=== PATIENT | female | born 1940 | race Caucasian/White ===

== ENCOUNTER 2020-06-16 13:00 | Outpatient (RCR) | payer MEDICARE, SELFPAY ==
--- NOTE | 2020-06-28 11:38 | MHC.PT.EP ---
[facility] [place] Office [place] Office [place] Office [address] [phone] F: [phone] F: [phone] F: [phone] F: [phone] Physical Therapy Plan of Care Date of Evaluation: 06/16/20 Date of Surgery: Diagnosis: Non displaced R ankle fracture Assessment: Frequency and Duration: The patient will be seen Short Term Goals: SEE LTG BELOW Knot Borer Goals: reduce girth descrepancy to absent - met No AD, symmetrical gait - met able to walk/stand > 20 minutes without increased pain - met normal ankle AROM, strength 4/5 grossly - met (ROM WFL) I with HEP - MET Treatment Plan: Modalities to reduce pain, spasms and effusion. Manual therapy to restore motion and function. Therapeutic exercise to improve strength and flexibility. Neuromuscular re-education for posture and balance. Therapeutic activities to return to functional activities of daily living. Please sign and return to therapist. Thank you for your referral.
== END 2020-06-28 11:41 | disposition home or self-care (01) ==
LOC: HO.PTCHIC 13:00
PROVIDERS: PCP Internal Medicine; Visit Provider Physician Assistant
DX: S82.891D Other fracture of right lower leg, subsequent encounter for closed fracture with routine healing (principal); X58.XXXD Exposure to other specified factors, subsequent encounter
CPT/HCPCS: 97110; 97112; 97140

== ENCOUNTER → 2021-02-23 08:51 | Outpatient (BNVA) | payer MEDICARE, SELFPAY | PROVIDERS: Visit Provider Urology | DX: C67.9 Malignant neoplasm of bladder, unspecified (principal) | CPT/HCPCS: 52000; 99212 ==

== ENCOUNTER 2022-02-23 09:36 | Outpatient (REF) | payer MEDICARE, SELFPAY ==
[2022-02-23 16:44] LABS: Urine Cytology See Pathology rpt
== END 2022-02-23 09:37 | disposition home or self-care (01) ==
LOC: HO.LAB 09:36
PROVIDERS: Visit Provider Urology
DX: C67.9 Malignant neoplasm of bladder, unspecified (principal)
CPT/HCPCS: 52000; 88112; 99212

== ENCOUNTER 2023-02-22 09:58 | Outpatient (REF) | payer MEDICARE, SELFPAY ==
[2023-02-22 18:07] LABS: Urine Cytology See Pathology rpt
== END 2023-02-22 09:59 | disposition home or self-care (01) ==
LOC: HO.LAB 09:58
PROVIDERS: PCP Internal Medicine; Visit Provider Urology
DX: C67.9 Malignant neoplasm of bladder, unspecified (principal)
CPT/HCPCS: 52000; 88112; 99212

== ENCOUNTER 2023-04-01 12:00 | Day surgery (SDC) | payer MEDICARE, SELFPAY ==
[2023-03-27 14:17] VITALS: BMI 23.0
--- NOTE | 2023-03-29 10:20 | HO.ANESPROP2 ---
Documented by User: Ayana Carrasco NP 03/29/23 10:24 HPI - Anesthesia Eval Consult details Narrative: 83yo F for TUR Bladder Tumor w/gemcitabine CAD s/p PCI with RCA in 2003. Last cardiac visit 08/2021. Stable at 09/2022 PCP visit. [facility] Active Problems Active Problems: All Active Problems (Updated 03/27/23 @ 13:55 by Kenzie Yang RN) Bladder cancer (Acute) Past Medical History Medical History (Updated 03/27/23 @ 13:55 by Kenzie Yang RN) Abdominal pain Adenomatous polyposis coli Arthritis CAD (coronary artery disease) Claudication Closed fracture of patella Gallstone GERD (gastroesophageal reflux disease) Glucose intolerance History of bladder cancer HTN (hypertension) Hx of fracture of wrist Hypercholesterolemia Leg cramps Obesity, Class I, BMI 30.0-34.9 (see actual BMI) Osteoporosis Venous stasis Vitamin D deficiency Surgical History Surgical History (Updated 03/27/23 @ 13:56 by Kenzie Yang RN) H/O colonoscopy Social History Social History Patient Tobacco Use Status: Never used Tobacco Use of substances other than those prescribed or required for medical reasons: No Are you DNR?: No Advance Directives: No Advance Directives Information Provided: Yes Meds Allergies Allergy/AdvReac Type Severity Reaction Status Date / Time No Known Allergies Allergy Mild NONE Verified 02/22/23 10:17 Home Medications Medication Instructions Recorded Confirmed Last Taken Type alendronate 70 mg tablet 70 mg PO QWEEK 03/27/23 03/27/23 Unknown History aspirin 81 mg tablet,delayed 81 mg PO DAILY 03/27/23 03/27/23 03/27/23 History release atorvastatin 40 mg tablet 40 mg PO BEDTIME 03/27/23 03/27/23 Unknown History calcium carbonate 600 mg-vitamin 1 tab PO DAILY 03/27/23 03/27/23 Unknown History D3 10 mcg (400 unit) tablet (Calcium 600 + D(3)) carvedilol 25 mg tablet (Coreg) 25 mg PO BID 03/27/23 03/27/23 Unknown History hydrochlorothiazide 25 mg tablet 25 mg PO DAILY 03/27/23 03/27/23 Unknown History hydrocortisone valerate 0.2 % 1 appl topical BID 03/27/23 03/27/23 Unknown History topical cream losartan 100 mg tablet 100 mg PO DAILY 03/27/23 03/27/23 Unknown History multivitamin 1 tab PO DAILY 03/27/23 03/27/23 Unknown History Exam Exam Date and Time: March 29, 2023 1020 Height,Weight and Vital Signs: Height 5 ft 8 in Weight 68.492 kg Assessment and Plan Assessment Anesthesia Assessment: Chart Reviewed Documented by User: Art Rosales MD 04/01/23 13:14 [facility] Past Medical History Medical History (Updated 03/27/23 @ 13:55 by Kenzie Yang RN) Abdominal pain Adenomatous polyposis coli Arthritis CAD (coronary artery disease) Claudication Closed fracture of patella Gallstone GERD (gastroesophageal reflux disease) Glucose intolerance History of bladder cancer HTN (hypertension) Hx of fracture of wrist Hypercholesterolemia Leg cramps Obesity, Class I, BMI 30.0-34.9 (see actual BMI) Osteoporosis Venous stasis Vitamin D deficiency Narrative: No heart problems since stent was placed. Family History Family history of problems with anesthesia: No Surgical History Surgical History (Updated 03/27/23 @ 13:56 by Kenzie Yang RN) H/O colonoscopy History of Problems with Anesthesia: No Social History Social History Patient Tobacco Use Status: Never used Tobacco Use of substances other than those prescribed or required for medical reasons: No Are you DNR?: No Advance Directives: No Advance Directives Information Provided: Yes Meds Allergies Allergy/AdvReac Type Severity Reaction Status Date / Time No Known Allergies Allergy Mild NONE Verified 02/22/23 10:17 Home Medications Medication Instructions Recorded Confirmed Last Taken Type alendronate 70 mg tablet 70 mg PO QWEEK 03/27/23 03/27/23 Unknown History aspirin 81 mg tablet,delayed 81 mg PO DAILY 03/27/23 03/27/23 03/27/23 History release atorvastatin 40 mg tablet 40 mg PO BEDTIME 03/27/23 03/27/23 Unknown History calcium carbonate 600 mg-vitamin 1 tab PO DAILY 03/27/23 03/27/23 Unknown History D3 10 mcg (400 unit) tablet (Calcium 600 + D(3)) carvedilol 25 mg tablet (Coreg) 25 mg PO BID 03/27/23 03/27/23 Unknown History hydrochlorothiazide 25 mg tablet 25 mg PO DAILY 03/27/23 03/27/23 Unknown History hydrocortisone valerate 0.2 % 1 appl topical BID 03/27/23 03/27/23 Unknown History topical cream losartan 100 mg tablet 100 mg PO DAILY 03/27/23 03/27/23 Unknown History multivitamin 1 tab PO DAILY 03/27/23 03/27/23 Unknown History Exam Airway Mallampati Class: II TM Dist: >3cm Neck ROM: Full Loose/Missing/Broken Teeth: No Heart: ok. See above. Lungs: ok Assessment and Plan Assessment Anesthesia Assessment: Anesthesia Plan Discussed Final Anesthetic Review Family History of Problems with Anesthesia: No History of Problems with Anesthesia: No NPO: Yes ASA Class: III Final Preanesthetic Review: No Changes in Pt Med Stat, Meds/Allgs Chart Reviewed, Consent Obtained/Reviewed and Anes Risks/Benef Reviewed Patient Risk: High Procedure Risk: Low Anesthetic Plan Anesthetic Plan: GA and Agree w/ Assess. and Plan Disposition: Standard PACU
[2023-04-01] VITALS (10 sets, daily range): BP systolic 135–179; BP diastolic 47–88; PULSE 57–70; RESP 16–18; TEMP 36.4–36.5; O2SAT 97
[2023-04-01] MEDS: Lactated Ringers 1,000 ML 100 ML IVCONT (13:26)
--- NOTE | 2023-04-01 14:33 | P.HPSUR_ITS ---
Pre-Procedural Eval Section A Date of Service: 04/01/23 The patient is an INPATIENT: No Changes since office visit: No Cold of Flu in the past 2 weeks, No New Medical Problems, No Changes in Medication and No Patient answered all questions The History & Physical has been completed within 30 days and I have reviewed it.: Yes Section B Chief Complaint: Malignant neoplasm of bladder, unspecified Details of Present Illness: recurrent superficial bladder cancer recurrence Present Medications: see Short Stay Collaborative assessment Medical History: No relevant PMH History of Previous Operations: Relevant previous surgery/procedure and date(s) Allergies: Allergies Allergy/AdvReac Type Severity Reaction Status Date / Time No Known Allergies Allergy Mild NONE Verified 02/22/23 10:17 Review of Systems Sugical H&P ROS: Negative: Constitution, Cardiovascular, Respiratory, Neurological, Psychiatric, Hem-Onc, Allergic/Immunologic, Gastrointestinal, Genitourinary, Musculoskeletal, Integumentary, Endocrine and E yes/Ears/Nose/Throat Exam Surgical H&P Exam: Normal: HEENT, Normal: Heart, Normal: Lungs, Normal: Extremities, Normal: Abdomen, Normal: Skin and Normal: Neurological Plan Diagnosis/Plan: Unchanged ( cystoscopy, bladder biopsy, fulguration, gemcitabine) I have reviewed the history and physical and performed a pertinent physical examination on my patient. No changes have occurred unless specified. Time Spent With Patient Time: Total time managing care of this patient today ____ minutes.
--- NOTE | 2023-04-01 15:29 | P.OP_ITS ---
Operative Note Operative Note Date of Service: 04/01/23 Narrative: PreOperative Diagnosis: bladder cancer Post Operative Diagnosis: bladder cancer Procedure: fulguration and Gemcitabine installation Surgeon: Dr David Ayon Anesthesia: general Indications for procedure: recurrent superficial bladder cancer right-sided bladder wall office cystoscopy Procedure: After informed consent was verified the patient was brought to the operating room and placed in a supine position. Anesthesia was administered per protocol. The patient was placed in a modified dorsal lithotomy position and prepped and draped in a sterile fashion. Safety pause time-out was performed. Antibiotics were confirmed. 24 Scottish cystoscope placed using narrow band imaging mucosal changes could be seen around prior biopsy and resection site. Fulguration performed around this area. Two other areas that was small had mucosal changes and these with follow-up rated At the completion of the procedure the bladder was irrigated. The cystoscope was removed. A [address] Linares catheter was inserted into the bladder. 10 cc was placed in the balloon. 2 g of gemcitabine in 100 cc of normal saline was instilled into the bladder. The flow from the catheter was left clamped. The inflow to the catheter was attached to a 3 L normal saline bag. The patient tolerated the procedure well. They were extubated in the operating room and transferred in stable condition to the recovery area. Gemcitabine will remain in the bladder for 1 hour. At the completion of 1 hour the clamp will be removed. The gemcitabine will be allowed to egress to the urine collection bag. The 3 L bag of normal saline will be run at maximum rate through the bladder in order to dilute any residual gemcitabine. The Linares catheter will then be removed. Pathology: none Drains: []
== END 2023-04-01 17:27 | disposition home or self-care (01) ==
PROVIDERS: PCP Internal Medicine; Visit Provider Urology
PROC: 0TBB8ZZ Excision of Bladder, Via Natural or Artificial Opening Endoscopic (ICD-10-PCS; CPT 52234; principal; 2023-04-01 13:50)
DX: C67.4 Malignant neoplasm of posterior wall of bladder (principal); N32.89 Other specified disorders of bladder; I25.10 Atherosclerotic heart disease of native coronary artery without angina pectoris; Z95.5 Presence of coronary angioplasty implant and graft; I10 Essential (primary) hypertension; E78.5 Hyperlipidemia, unspecified; E74.39 Other disorders of intestinal carbohydrate absorption; Z79.82 Long term (current) use of aspirin; Z79.899 Other long term (current) drug therapy
CPT/HCPCS: 52234; 51720; J1100; J1956; J2405; J3010; J9201

== ENCOUNTER → 2023-04-01 12:00 | Outpatient (BNV) | payer MEDICARE, SELFPAY | PROVIDERS: PCP Internal Medicine; Visit Provider Urology | DX: C67.9 Malignant neoplasm of bladder, unspecified (principal) | CPT/HCPCS: 51720; 52234 ==

== ENCOUNTER 2023-04-17 14:22 | Outpatient (AMB) | payer MEDICARE, SELFPAY ==
--- NOTE | 2023-04-17 14:26 | MHC.OFFVIS ---
Intake Intake Visit Reasons: 2 week (TURBT/Gemcitabine) Intake Note: Patient is present for Follow Up TURBT Urology Med: None Antibiotic Allergy: None Blood Thinner: Aspirin Pharmacy: [facility] Allergies No Known Allergies Allergy (Mild, Verified 04/17/23 14:27) NONE HPI HPI Comments History of Present Illness Details Arlyn is a pleasant female. She is a patient of Dr. Epstein. She is seen for the following urologic conditions - bladder cancer Stable 4 month follow-up cystoscopy Minimal issues following procedure Superficial bladder cancer - recurrent Stable Cystoscopy - 02/20 NAD, 02/21 NAD TURBT - 04/24 fulgeration with gemcitabine Continues with white cells and urine Continue surveillance PFSH Medical History Abdominal pain Adenomatous polyposis coli Arthritis CAD (coronary artery disease) Claudication Closed fracture of patella Gallstone GERD (gastroesophageal reflux disease) Glucose intolerance History of bladder cancer HTN (hypertension) Hx of fracture of wrist Hypercholesterolemia Leg cramps Obesity, Class I, BMI 30.0-34.9 (see actual BMI) Osteoporosis Venous stasis Vitamin D deficiency Surgical History H/O colonoscopy Social History Patient Tobacco Use Status: Never used Tobacco Review of Systems Const Denies chills and Denies fever(s) Card Reports no additional complaints and Denies syncope Resp Denies cough GI Denies abdominal pain and Denies heartburn Reports as per HPI and Denies change in libido Neuro Denies syncope Psych Denies change in libido Endo Denies change in libido Physical Exam Const General: cooperative, healthy appearing, comfortable and no acute distress Orientation/consciousness: patient oriented x3 HEENT Face and sinus: Yes normal facial exam Mouth: moist mucous membranes Neck Neck: Yes normal visual inspection, Yes full ROM and Yes trachea midline Chest Chest palpation & inspection: normal inspection of the chest Resp Effort & Inspection: normal respiratory effort, able to speak in complete sentences and no respiratory distress GI Inspection: Yes normal to inspection Back/Spine/Pelvis Cervical Spine: normal cervical lordosis Thoracic/Lumbar Spine: thoracic and lumbar spine normal to inspection Skin General skin exam: no rashes or lesions noted Neuro General: patient oriented x3, gait normal, tone normal and moves all extremities Extrem General: Yes normal to inspection and Yes capillary refill normal Assessment & Plan Assessment & Plan (1) Bladder cancer: Code(s): C67.9 - Malignant neoplasm of bladder, unspecified Plan Four month follow-up Patient Instructions: Imaging studies, laboratory and physical exam results were discussed and reviewed in detail. No major barriers to patient understanding were identified. An opportunity to ask questions regarding the treatment plan was provided. All questions were answered. The patient expressed understanding and agreement with the above treatment plan. The patient is aware they should contact our office by phone for worsening of their current condition or the appearance of new urologic symptoms. Compliance is encouraged with any medications and followup testing that is ordered. It is a privilege to participate in the urologic care of your patient. If you have any questions or concerns regarding treatment for the above conditions, or other urologic issues, please do not hesitate to contact me. The office telephone contact is [phone]. This note is constructed using voice recognition software. While every effort has been made to ensure accuracy optical element coater errors may have been included. Yours sincerely, Dr David Ayon MD, NADJA [facility] - Urology Providers of Expert, Compassionate Care for the Genitourinary System Coding Level of Care Code Est Pt Level 3 (34644) Diagnoses Bladder cancer C67.9
== END 2023-04-17 14:50 | disposition home or self-care (01) ==
PROVIDERS: PCP Internal Medicine; Visit Provider Urology
DX: C67.8 Malignant neoplasm of overlapping sites of bladder (principal)
CPT/HCPCS: 99213

== ENCOUNTER → 2023-04-17 14:22 | Outpatient (BNVA) | payer MEDICARE, SELFPAY | PROVIDERS: PCP Internal Medicine; Visit Provider Urology | DX: C67.9 Malignant neoplasm of bladder, unspecified (principal) | CPT/HCPCS: 99212 ==

== ENCOUNTER 2023-08-13 09:54 | Outpatient (REF) | payer MEDICARE, SELFPAY ==
[2023-08-13 17:07] LABS: Urine Cytology See Pathology rpt
== END 2023-08-13 09:55 | disposition home or self-care (01) ==
LOC: HO.LAB 09:54
PROVIDERS: PCP Internal Medicine; Visit Provider Urology
DX: C67.9 Malignant neoplasm of bladder, unspecified (principal)
CPT/HCPCS: 52000; 81003; 88112

== ENCOUNTER 2023-08-13 09:54 | Outpatient (AMB) | payer MEDICARE, SELFPAY ==
--- NOTE | 2023-08-13 10:13 | A.OFFVIS_ITS ---
Intake Intake Visit Reasons: 4m/cysto(Bladder Ca) Intake Note: Patient is Present for Cystoscopy Urology Med: Antibiotic Allergy: Blood Thinner: Pharmacy: [facility] Cystoscope lot: [id number] exp: 08/26/2025 Allergies No Known Allergies Allergy (Mild, Verified 04/17/23 14:27) NONE HPI HPI Comments History of Present Illness Details Arlyn is a pleasant female. She is a patient of Dr. Epstein. She is seen for the following urologic conditions - bladder cancer Follow-up cystoscopy Stable 4 month follow-up cystoscopy Superficial bladder cancer - recurrent - last leasion LG 04/24 Stable Cystoscopy - 02/20 NAD, 02/21 NAD, 08/24 NAD TURBT - 04/24 fulgeration with gemcitabine Continues with white cells and urine Continue surveillance PFSH Medical History Abdominal pain Adenomatous polyposis coli Arthritis CAD (coronary artery disease) Claudication Closed fracture of patella Gallstone GERD (gastroesophageal reflux disease) Glucose intolerance History of bladder cancer HTN (hypertension) Hx of fracture of wrist Hypercholesterolemia Leg cramps Obesity, Class I, BMI 30.0-34.9 (see actual BMI) Osteoporosis Venous stasis Vitamin D deficiency Surgical History H/O colonoscopy Social History Patient Tobacco Use Status: Never used Tobacco Review of Systems Const Denies chills and Denies fever(s) Card Reports no additional complaints and Denies syncope Resp Denies cough GI Denies abdominal pain and Denies heartburn Reports as per HPI and Denies change in libido Neuro Denies syncope Psych Denies change in libido Endo Denies change in libido Physical Exam Const General: cooperative, healthy appearing, comfortable and no acute distress Orientation/consciousness: patient oriented x3 HEENT Face and sinus: Yes normal facial exam Mouth: moist mucous membranes Neck Neck: Yes normal visual inspection, Yes full ROM and Yes trachea midline Chest Chest palpation & inspection: normal inspection of the chest Resp Effort & Inspection: normal respiratory effort, able to speak in complete sentences and no respiratory distress GI Inspection: Yes normal to inspection Back/Spine/Pelvis Cervical Spine: normal cervical lordosis Thoracic/Lumbar Spine: thoracic and lumbar spine normal to inspection Skin General skin exam: no rashes or lesions noted Neuro General: patient oriented x3, gait normal, tone normal and moves all extremities Extrem General: Yes normal to inspection and Yes capillary refill normal Office Procedures Cystoscopy Consent Discussed risk and benefit or proposed procedure with the patient. Information consent for procedure given to the patient. Discussed technical aspects, risks, benefits and alternatives in full. Addressed all of the patient's questions and concerns regarding the procedure. The patient demonstrated knowledge and understanding. They wish to proceed with this procedure. Preparation The patient was prepped in the usual manner. A collar padder blindstitch was present and in the room. Genitalia was prepped with betadine solution in a sterile manner. Lidocaine Jelly 2% was placed into the urethra and 16Fr flexible Olympus cystoscope was inserted into the meatus after adequate lubrication. Procedure Meatus caruncle Urethra normal Bladder examination with retroflexion of cystoscope Bladder Orifices normal shape and position Trigone normal Bladder Capacity medium Trabeculations grade 1 Cellule Formation - Diverticulum Formation - Mucosal Erythema - Bladder Tumor -- [id number] DISPOSABLE SCOPE URO-G FLEXIBLE SCOPE Procedure code (CPT) selection complete Office Meds lidocaine HCl 2 % mucosal jelly in applicator Performing Provider: David Ayon MD Performing Location: [facility] Administered by: Luisa Heredia RN on 08/13/23 10:28 Dose Route Admin Location Dispensed Lot Number Expiration Date NDC Loss Control Technician 10 mL intra-urethral 10 mL nitrofurantoin monohydrate/macrocrystals 100 mg capsule Performing Provider: David Ayon MD Performing Location: [facility] Administered by: Luisa Heredia RN on 08/13/23 10:28 Dose Route Admin Location Dispensed Lot Number Expiration Date NDC Loss Control Technician 100 mg PO 1 cap naproxen 500 mg tablet Performing Provider: David Ayon MD Performing Location: [facility] Administered by: Luisa eHredia RN on 08/13/23 10:28 Dose Route Admin Location Dispensed Lot Number Expiration Date NDC Loss Control Technician 500 mg PO 1 tab Results AMB Urinalysis, Automated UA Leukoctes 70 Yue/uL Last Edit by GISELA Freire on 08/13/23 10:28 UA Nitrite Negative Last Edit by Kaitlynn Callejas, RMA on 08/13/23 10:28 UA Urobilinogen 0.2 mg/dL Last Edit by Kaitlynn Callejas, RMA on 08/13/23 10:2 8 UA Protein 0 mg/dL Last Edit by Kaitlynn Callejas, RMA on 08/13/23 10:28 UA pH 6.5 Last Edit by Kaitlynn Callejas, RMA on 08/13/23 10:28 UA Blood 0 Chon/uL Last Edit by Kaitlynn Callejas, RMA on 08/13/23 10:28 UA Specific [place] 1.010 Last Edit by Kaitlynn Callejas, RMA on 08/13/23 10: 28 UA Ketone Negative Last Edit by Kaitlynn Callejas, RMA on 08/13/23 10:28 UA Bilirubin 0 mg/dL Last Edit by Kaitlynn Callejas, RMA on 08/13/23 10:28 UA Glucose 0 mg/dL Last Edit by Kaitlynn Callejas, A on 08/13/23 10:28 Results Reviewed Results Reviewed: Laboratory Last Values Urine pH (Auto) 6.5 08/13/23 10:26 Specific [place] (Auto) 1.010 08/13/23 10:26 Urine Protein (Auto) 0 mg/dL 08/13/23 10:26 Glucose (UA)(Auto) 0 mg/dL 08/13/23 10:26 Urine Ketones (Auto) Negative 08/13/23 10:26 Urine Blood (Auto) 0 Chon/uL 08/13/23 10:26 Urine Nitrite (Auto) Negative 08/13/23 10:26 Urine Bilirubin (Auto) 0 mg/dL 08/13/23 10:26 Urine Urobilinogen (Auto) 0.2 mg/dL 08/13/23 10:26 Leukocyte Esterase (Auto) 70 Yue/uL 08/13/23 10:26 Assessment & Plan Assessment & Plan (1) Bladder cancer: Code(s): C67.9 - Malignant neoplasm of bladder, unspecified Plan Four month follow-up check cysto Orders: Orders AMB Urinalysis Automated Today Z13.9 - Encounter for screening, unspecified AMB Cystoscopy Today C67.9 - Malignant neoplasm of bladder, unspecified Urine Cytology Today C67.9 - Malignant neoplasm of bladder, unspecified Patient Instructions: Imaging studies, laboratory and physical exam results were discussed and reviewed in detail. No major barriers to patient understanding were identified. An opportunity to ask questions regarding the treatment plan was provided. All questions were answered. The patient expressed understanding and agreement with the above treatment plan. The patient is aware they should contact our office by phone for worsening of their current condition or the appearance of new urologic symptoms. Compliance is encouraged with any medications and followup testing that is ordered. It is a privilege to participate in the urologic care of your patient. If you have any questions or concerns regarding treatment for the above conditions, or other urologic issues, please do not hesitate to contact me. The office telephone contact is [phone]. This note is constructed using voice recognition software. While every effort has been made to ensure accuracy email production consultant errors may have been included. Yours sincerely, Dr David Ayon MD, NAJDA [facility] - Urology Providers of Expert, Compassionate Care for the Genitourinary System Coding Level of Care Code Procedure Only Diagnoses Bladder cancer C67.9 CPT Codes Cystoscopy - CPT: 99001-[id number] ([id number])
== END 2023-08-13 10:49 | disposition home or self-care (01) ==
PROVIDERS: PCP Internal Medicine; Visit Provider Urology
DX: C67.9 Malignant neoplasm of bladder, unspecified (principal); Z13.9 Encounter for screening, unspecified
CPT/HCPCS: 52000

== ENCOUNTER 2023-12-12 08:59 | Outpatient (REF) | payer MEDICARE, SELFPAY ==
[2023-12-12 17:06] LABS: Urine Cytology See Pathology rpt
== END 2023-12-12 09:00 | disposition home or self-care (01) ==
LOC: HO.LAB 08:59
PROVIDERS: PCP Internal Medicine; Visit Provider Urology
DX: C67.9 Malignant neoplasm of bladder, unspecified (principal); M19.90 Unspecified osteoarthritis, unspecified site; R31.29 Other microscopic hematuria; R33.9 Retention of urine, unspecified
CPT/HCPCS: 52000; 81003; 88112; 99212

== ENCOUNTER 2023-12-12 08:59 | Outpatient (AMB) | payer MEDICARE, SELFPAY ==
--- NOTE | 2023-12-12 09:00 | A.OFFVIS_ITS ---
Intake Intake Visit Reasons: cysto (confirmed) Intake Note: Patient presents today for a Cystoscopy Meds: None Allergies to Antibiotic: No Known Allergies Blood Thinner: None Urinalysis test clear for Cysto? Yes Disposable Uro-G Cystoscope Cannula: Lot: [id number] Exp: 07/11/2026 Chief Of Staff Doctor Required: No Accompanied by: Self / Same As Patient Allergies No Known Allergies Allergy (Mild, Verified 12/12/23 09:10) NONE HPI HPI Comments History of Present Illness Details Arlyn is a pleasant female. She is a patient of Dr. Epstein. She is seen for the following urologic conditions - bladder cancer Follow-up cystoscopy No evidence of disease Six-month follow-up cystoscopy Does report sole knees and hips was sitting in lithotomy. Secondary to arthritis. He takes Tylenol which she says does not work. Does not really take Naprosyn. Discussed trial of Celebrex Prescription provided If successful can follow with PCP Superficial bladder cancer - recurrent - last leasion LG 04/24 Stable Cystoscopy - 02/20 NAD, 02/21 NAD, 08/24 NAD TURBT - 04/24 fulgeration with gemcitabine Continues with white cells and urine Continue surveillance [facility] Medical History (Updated 12/12/23 @ 09:25 by David Ayon MD) Obesity, Class I, BMI 30.0-34.9 (see actual BMI) Vitamin D deficiency Venous stasis Osteoporosis Leg cramps Hypercholesterolemia HTN (hypertension) Hx of fracture of wrist Glucose intolerance Gallstone GERD (gastroesophageal reflux disease) Closed fracture of patella Claudication Arthritis CAD (coronary artery disease) Adenomatous polyposis coli Abdominal pain History of bladder cancer Surgical History H/O colonoscopy Social History Patient Tobacco Use Status: Never used Tobacco Review of Systems Const Denies chills and Denies fever(s) Card Reports no additional complaints and Denies syncope Resp Denies cough GI Denies abdominal pain and Denies heartburn Reports as per HPI and Denies change in libido Neuro Denies syncope Psych Denies change in libido Endo Denies change in libido Physical Exam Const General: cooperative, healthy appearing, comfortable and no acute distress Orientation/consciousness: patient oriented x3 HEENT Face and sinus: Yes normal facial exam Mouth: moist mucous membranes Neck Neck: Yes normal visual inspection, Yes full ROM and Yes trachea midline Chest Chest palpation & inspection: normal inspection of the chest Resp Effort & Inspection: normal respiratory effort, able to speak in complete sentences and no respiratory distress GI Inspection: Yes normal to inspection Back/Spine/Pelvis Cervical Spine: normal cervical lordosis Thoracic/Lumbar Spine: thoracic and lumbar spine normal to inspection Skin General skin exam: no rashes or lesions noted Neuro General: patient oriented x3, gait normal, tone normal and moves all extremities Extrem General: Yes normal to inspection and Yes capillary refill normal Office Procedures Cystoscopy Consent Discussed risk and benefit or proposed procedure with the patient. Information consent for procedure given to the patient. Discussed technical aspects, risks, benefits and alternatives in full. Addressed all of the patient's questions and concerns regarding the procedure. The patient demonstrated knowledge and understanding. They wish to proceed with this procedure. Preparation The patient was prepped in the usual manner. A senior insight manager was present and in the room. Genitalia was prepped with betadine solution in a sterile manner. Lidocaine Jelly 2% was placed into the urethra and 16Fr flexible Olympus cystoscope was inserted into the meatus after adequate lubrication. Procedure Meatus D estrogenized meatus Urethra normal Bladder examination with retroflexion of cystoscope Bladder Orifices normal shape and position Trigone normal Bladder Capacity normal Trabeculations Cellule Formation Diverticulum Formation Mucosal Erythema Bladder Tumor scarring on left side bladder prior location [id number] DISPOSABLE SCOPE URO-G FLEXIBLE SCOPE Procedure code (CPT) selection complete Office Meds lidocaine HCl 2 % mucosal jelly in applicator Performing Provider: David Ayon MD Performing [facility] [place] [facility] Administered by: Kyle Vilchis LPN on 12/12/23 09:21 Dose Route Admin Location Dispensed Lot Number Expiration Date [facility] Certified Nurse Operating Room 10 mL intra-urethral 10 mL nitrofurantoin monohydrate/macrocrystals 100 mg capsule Performing Provider: David Ayon MD Performing Location: [facility] [place] [facility] Administered by: Kyle Vilchis LPN on 12/12/23 09:21 Dose Route Admin Location Dispensed Lot Number Expiration Date NDC Certified Nurse Operating Room 100 mg PO 1 cap naproxen 500 mg tablet Performing Provider: David Ayon MD Performing Location: [facility] [place] [facility] Administered by: Kyle Vilchis LPN on 12/12/23 09:21 Dose Route Admin Location Dispensed Lot Number Expiration Date NDC Certified Nurse Operating Room 500 mg PO 1 tab Results AMB Urinalysis, Automated UA Leukoctes 500 Yue/uL Last Edit by Griselda Wetzel CMA on 12/12/23 09:18 UA Nitrite Negative Last Edit by Griselda Wetzel CMA on 12/12/23 09: 18 UA Urobilinogen 0.2 mg/dL Last Edit by Griselda Wetzel CMA on 4 09:18 UA Protein 0 mg/dL Last Edit by Griselda Wetzel CMA on 12/12/23 09:18 UA pH 6.0 Last Edit by Griselda Wetzel CMA on 12/12/23 09:18 UA Blood 10 Chon/uL Last Edit by Griselda Wetzel CMA on 12/12/23 09:18 UA Specific [place] 1.015 Last Edit by Griselda Wetzel CMA on 09:18 UA Ketone Negative Last Edit by Griselda Wetzel CMA on 12/12/23 09:1 8 UA Bilirubin 0 mg/dL Last Edit by Griselda Wetzel CMA on 12/12/23 09: 18 UA Glucose 0 mg/dL Last Edit by Griselda Wetzel CMA on 12/12/23 09:18 Results Reviewed Results Reviewed: Laboratory Last Values Urine pH (Auto) 6.0 12/12/23 09:17 Specific [place] (Auto) 1.015 12/12/23 09:17 Urine Protein (Auto) 0 mg/dL 12/12/23 09:17 Glucose (UA)(Auto) 0 mg/dL 12/12/23 09:17 Urine Ketones (Auto) Negative 12/12/23 09:17 Urine Blood (Auto) 10 Chon/uL 12/12/23 09:17 Urine Nitrite (Auto) Negative 12/12/23 09:17 Urine Bilirubin (Auto) 0 mg/dL 12/12/23 09:17 Urine Urobilinogen (Auto) 0.2 mg/dL 12/12/23 09:17 Leukocyte Esterase (Auto) 500 Yue/uL 12/12/23 09:17 Assessment & Plan Assessment & Plan (1) Arthritis: Code(s): M19.90 - Unspecified osteoarthritis, unspecified site (2) Bladder cancer: Code(s): C67.9 - Malignant neoplasm of bladder, unspecified Plan Six-month follow-up cystoscopy Orders: Orders AMB Cystoscopy Today C67.9 - Malignant neoplasm of bladder, unspecified AMB Urinalysis Automated Today R33.9 - Retention of urine, unspecified Urine Cytology Today R31.29 - Other microscopic hematuria Medications: New celecoxib 100 mg PO BID 30 days 60 caps 0RF M19.90 - Unspecified osteoarthritis, unspecified site Patient Instructions: Imaging studies, laboratory and physical exam results were discussed and reviewed in detail. No major barriers to patient understanding were identified. An opportunity to ask questions regarding the treatment plan was provided. All questions were answered. The patient expressed understanding and agreement with the above treatment plan. The patient is aware they should contact our office by phone for worsening of their current condition or the appearance of new urologic symptoms. Compliance is encouraged with any medications and followup testing that is ordered. It is a privilege to participate in the urologic care of your patient. If you have any questions or concerns regarding treatment for the above conditions, or other urologic issues, please do not hesitate to contact me. The office tel ephone contact is [phone]. This note is constructed using voice recognition software. While every effort has been made to ensure accuracy core drill operator helper errors may have been included. Yours sincerely, Dr David Ayon MD, NADJA [facility] - Urology Providers of Expert, Compassionate Care for the Genitourinary System Coding Level of Care Code Est Pt Level 4 (38866) Diagnoses Arthritis M19.90 Bladder cancer C67.9 CPT Codes Cystoscopy - CPT: 92410-[id number] ([id number])
== END 2023-12-12 09:42 | disposition home or self-care (01) ==
PROVIDERS: PCP Internal Medicine; Visit Provider Urology
DX: M19.90 Unspecified osteoarthritis, unspecified site (principal); C67.9 Malignant neoplasm of bladder, unspecified; R33.9 Retention of urine, unspecified
CPT/HCPCS: 52000; 99214

== ENCOUNTER 2024-02-14 07:31 | Outpatient (REF) | payer MEDICARE, SELFPAY ==
[2024-02-14 10:21] LABS: Appearance Urine Clear; Color Urine Yellow; Glucose Urine UA Negative (Negative); Leukocyte Esterase Urine Moderate (2+) (Negative); Nitrite Urine Negative (Negative); PH 7.5 (5.0-9.0); UMIC TRIGGER UA YES; Urine Blood Small (1+) (Negative); Urine Ketones Negative (Negative); Urine Protein Negative (Neg-Trace)
[2024-02-14 10:28] LABS: Bacteria Urine 4+ (None Seen); Hyaline Casts Urine 0-2 /LPF (0-2); Squamous Epithelial Cell Urine 0-2 /HPF (0-2); WBC Urine 21-50 /HPF (0-5)
== END 2024-02-14 07:32 | disposition home or self-care (01) ==
LOC: HO.HMGCLDS 07:31
PROVIDERS: PCP Internal Medicine; Visit Provider Urology
DX: C67.9 Malignant neoplasm of bladder, unspecified (principal); R82.90 Unspecified abnormal findings in urine
CPT/HCPCS: 81001; 87086; 87088; 87186

== ENCOUNTER 2024-09-15 13:41 | Outpatient (AMB) | payer MEDICARE, SELFPAY ==
--- NOTE | 2024-09-15 13:44 | A.OFFVIS_ITS ---
Intake Visit Reasons: Cystoscopy(Bladder Ca) Intake Note: Patient is present for Cystoscopy Urology Medication:BACTRIM,BACLOFEN,GABAPENTIN,CELECOXIB Antibiotic Allergy:NONE Blood Thinner:ASPIRIN Lot:[id number] Exp:07/06/27 Auricular Acupuncturist Required: No Allergies No Known Allergies Allergy (Mild, Verified 09/15/24 13:47) NONE HPI Comments Details: Arlyn is a pleasant female. She is a patient of Dr. Epstein. 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 - last leasion LG 04/24 Stable Cystoscopy - 02/20 NAD, 02/21 NAD, 08/24 NAD TURBT - 04/24 fulgeration with gemcitabine Continues with white cells and urine Continue surveillance PF[facility] Medical History (Updated 09/15/24 @ 14:46 by David Ayon MD) Obesity, Class I, BMI 30.0-34.9 (see actual BMI) Vitamin D deficiency Venous stasis Osteoporosis Leg cramps Hypercholesterolemia HTN (hypertension) Hx of fracture of wrist Glucose intolerance Gallstone GERD (gastroesophageal reflux disease) Closed fracture of patella Claudication Arthritis CAD (coronary artery disease) Adenomatous polyposis coli Abdominal pain History of bladder cancer Surgical History H/O colonoscopy Social History Patient Tobacco Use Status: Never used Tobacco Review of Systems Const Denies chills and Denies fever(s) Card Reports no additional complaints and Denies syncope Resp Denies cough GI Denies abdominal pain and Denies heartburn Reports as per HPI and Denies change in libido Neuro Denies syncope Psych Denies change in libido Endo Denies change in libido Physical Exam Const General: cooperative, healthy appearing, comfortable and no acute distress Orientation/consciousness: patient oriented x3 HEENT Face and sinus: Yes normal facial exam Mouth: moist mucous membranes Neck Neck: Yes normal visual inspection, Yes full ROM and Yes trachea midline Chest Chest palpation & inspection: normal inspection of the chest Resp Effort & Inspection: normal respiratory effort, able to speak in complete sentences and no respiratory distress GI Inspection: Yes normal to inspection Back/Spine/Pelvis Cervical Spine: normal cervical lordosis Thoracic/Lumbar Spine: thoracic and lumbar spine normal to inspection Skin General skin exam: no rashes or lesions noted Neuro General: patient oriented x3, gait normal, tone normal and moves all extremities Extrem General: Yes normal to inspection and Yes capillary refill normal Office Procedures Cystoscopy Consent Discussed risk and benefit or proposed procedure with the patient. Information consent for procedure given to the patient. Discussed technical aspects, risks, benefits and alternatives in full. Addressed all of the patient's questions and concerns regarding the procedure. The patient demonstrated knowledge and understanding. They wish to proceed with this procedure. Preparation The patient was prepped in the usual manner. A licensed journeyman electrician was present and in the room. Genitalia was prepped with betadine solution in a sterile manner. Lidocaine Jelly 2% was placed into the urethra and 16Fr flexible Olympus cystoscope was inserted into the meatus after adequate lubrication. Procedure Meatus normal Urethra normal Bladder examination with retroflexion of cystoscope Bladder Orifices normal shape and position Trigone metaplasia Bladder Capacity normal Trabeculations grade 1 Cellule Formation - Diverticulum Formation - Mucosal Erythema cystitis cystica Bladder Tumor - [id number] DISPOSABLE SCOPE URO-G FLEXIBLE SCOPE Procedure code (CPT) selection complete Office Meds lidocaine HCl 2 % mucosal jelly in applicator Performing Provider: David Ayon MD Performing Location: [facility] [place] [facility] Administered by: David Ayon MD on 09/16/24 16:49 Dose Route Admin Location Dispensed Lot Number Expiration Date [facility] Special Needs Teacher 10 mL intra-urethral 10 mL Results AMB Urinalysis, Automated UA Leukoctes 500 Yue/uL Last Edit by KAMALA Jung on 09/15/24 14:05 UA Nitrite Negative Last Edit by KAMALA Jung on 09/15/24 14:05 UA Urobilinogen 0.2 mg/dL Last Edit by KAMALA Jung on 09/15/24 14:0 5 UA Protein 15 mg/dL Last Edit by KAMALA Jung on 09/15/24 14:05 UA pH 6.0 Last Edit by KAMALA Jung on 09/15/24 14:05 UA Blood 25 Chon/uL Last Edit by KAMALA Jung on 09/15/24 14:05 UA Specific [place] 1.010 Last Edit by KAMALA Jung on 09/15/24 14: 05 UA Ketone Negative Last Edit by KAMALA Jung on 09/15/24 14:05 UA Bilirubin 0 mg/dL Last Edit by KAMALA Jung on 09/15/24 14:05 UA Glucose 0 mg/dL Last Edit by KAMALA Jung on 09/15/24 14:05 Results Reviewed Results Reviewed: Laboratory Last Values Urine pH (Auto) 6.0 09/15/24 14:04 Specific [place] (Auto) 1.010 09/15/24 14:04 Urine Protein (Auto) 15 mg/dL 09/15/24 14:04 Glucose (UA)(Auto) 0 mg/dL 09/15/24 14:04 Urine Ketones (Auto) Negative 09/15/24 14:04 Urine Blood (Auto) 25 Chon/uL 09/15/24 14:04 Urine Nitrite (Auto) Negative 09/15/24 14:04 Urine Bilirubin (Auto) 0 mg/dL 09/15/24 14:04 Urine Urobilinogen (Auto) 0.2 mg/dL 09/15/24 14:04 Leukocyte Esterase (Auto) 500 Yue/uL 09/15/24 14:04 Assessment & Plan Assessment & Plan (1) Cystitis cystica: Code(s): N30.80 - Other cystitis without hematuria Category: Medical (2) Bladder cancer: Code(s): C67.9 - Malignant neoplasm of bladder, unspecified Category: Medical Plan Six-month follow-up Orders: Orders AMB Urinalysis Automated 09/15/24 Z13.9 - Encounter for screening, unspecified AMB Cystoscopy 09/15/24 C67.9 - Malignant neoplasm of bladder, unspecified Medications: New trimethoprim 100 mg PO DAILY 90 days 90 tabs 1RF N30.80 - Other cystitis without hematuria, R33.9 - Retention of urine, unspecified lidocaine HCl 2% 10 mL intra-urethral ONCE 10 mL 0RF C67.9 - Malignant neoplasm of bladder, unspecified Patient Instructions: Imaging studies, laboratory and physical exam results were discussed and reviewed in detail. No major barriers to patient understanding were identified. An opportunity to ask questions regarding the treatment plan was provided. All questions were answered. The patient expressed understanding and agreement with the above treatment plan. The patient is aware they should contact our office by phone for worsening of their current condition or the appearance of new urologic symptoms. Compliance is encouraged with any medications and followup testing that is ordered. It is a privilege to participate in the urologic care of your patient. If you have any questions or concerns regarding treatment for the above conditions, or other urologic issues, please do not hesitate to contact me. The office telephone contact is [phone]. This note is constructed using voice recognition software. While every effort has been made to ensure accuracy research associate molecular biology errors may have been included. Yours sincerely, Dr David Ayon MD, NADJA [facility] - Urology Providers of Expert, Compassionate Care for the Genitourinary System Coding Level of Care Code Est Pt Level 3 (16193) Diagnoses Cystitis cystica N30.80 Bladder cancer C67.9 CPT Codes Cystoscopy - CPT: 01962-[id number] ([id number])
== END 2024-09-15 14:51 | disposition home or self-care (01) ==
PROVIDERS: PCP Internal Medicine; Visit Provider Urology
DX: Z13.9 Encounter for screening, unspecified (principal)

== ENCOUNTER → 2024-09-15 13:41 | Outpatient (BNVA) | payer MEDICARE, SELFPAY | PROVIDERS: PCP Internal Medicine; Visit Provider Urology | DX: N30.80 Other cystitis without hematuria (principal); C67.9 Malignant neoplasm of bladder, unspecified | CPT/HCPCS: 52000; 81003; 99212 ==

== ENCOUNTER 2025-03-16 09:52 | Outpatient (REF) | payer MEDICARE, SELFPAY | END 2025-03-16 09:53 | disposition home or self-care (01) | LOC: HO.LAB 09:52 | PROVIDERS: PCP Internal Medicine; Visit Provider Urology | DX: C67.9 Malignant neoplasm of bladder, unspecified (principal); Z13.9 Encounter for screening, unspecified | CPT/HCPCS: 52000; 81003; 88112; 99212 ==

== ENCOUNTER 2025-03-16 09:52 | Outpatient (AMB) | payer MEDICARE, SELFPAY ==
--- NOTE | 2025-03-16 10:01 | A.OFFVIS_ITS ---
Intake Visit Reasons: Cysto Intake Note: Patient is present for Cystoscopy Urology Medication:trimethoprim Antibiotic Allergy:NONE Blood Thinner:ASPIRIN lot# [id number] exp: 09/06/2027 Dock Associate Required: No Accompanied by: Self / Same As Patient Allergies No Known Allergies Allergy (Mild, Verified 03/16/25 10:08) NONE HPI Comments Details: Arlyn is a pleasant female. She is a patient of Dr. Epstein. She is seen for the following urologic conditions - bladder cancer Follow-up cystoscopy No evidence of disease Completed 2 years of surveillance Cystitis cystica improved 12 month follow-up Superficial bladder cancer - recurrent - last leasion LG 04/24 Stable Cystoscopy - 02/20 NAD, 02/21 NAD, 08/24 NAD, 03/25 NAD TURBT - 04/24 fulgeration with gemcitabine Continues with white cells and urine Continue surveillance [facility] Medical History (Updated 09/15/24 @ 14:46 by David Ayon MD) Obesity, Class I, BMI 30.0-34.9 (see actual BMI) Vitamin D deficiency Venous stasis Osteoporosis Leg cramps Hypercholesterolemia HTN (hypertension) Hx of fracture of wrist Glucose intolerance Gallstone GERD (gastroesophageal reflux disease) Closed fracture of patella Claudication Arthritis CAD (coronary artery disease) Adenomatous polyposis coli Abdominal pain History of bladder cancer Surgical History H/O colonoscopy Social History Patient Tobacco Use Status: Never used Tobacco Review of Systems Const Denies chills and Denies fever(s) Card Reports no additional complaints and Denies syncope Resp Denies cough GI Denies abdominal pain and Denies heartburn Reports as per HPI and Denies change in libido Neuro Denies syncope Psych Denies change in libido Endo Denies change in libido Physical Exam Const General: cooperative, healthy appearing, comfortable and no acute distress Orientation/consciousness: patient oriented x3 HEENT Face and sinus: Yes normal facial exam Mouth: moist mucous membranes Neck Neck: Yes normal visual inspection, Yes full ROM and Yes trachea midline Chest Chest palpation & inspection: normal inspection of the chest Resp Effort & Inspection: normal respiratory effort, able to speak in complete sentences and no respiratory distress GI Inspection: Yes normal to inspection Back/Spine/Pelvis Cervical Spine: normal cervical lordosis Thoracic/Lumbar Spine: thoracic and lumbar spine normal to inspection Skin General skin exam: no rashes or lesions noted Neuro General: patient oriented x3, gait normal, tone normal and moves all extremities Extrem General: Yes normal to inspection and Yes capillary refill normal Office Procedures Cystoscopy Consent Discussed risk and benefit or proposed procedure with the patient. Information consent for procedure given to the patient. Discussed technical aspects, risks, benefits and alternatives in full. Addressed all of the patient's questions and concerns regarding the procedure. The patient demonstrated knowledge and understanding. They wish to proceed with this procedure. Preparation The patient was prepped in the usual manner. A supervisor in charge was present and in the room. Genitalia was prepped with betadine solution in a sterile manner. Lidocaine Jelly 2% was placed into the urethra and 16Fr flexible Olympus cystoscope was inserted into the meatus after adequate lubrication. Procedure Meatus retracted Urethra normal Bladder examination with retroflexion of cystoscope Bladder Orifices normal shape and position Trigone normal Bladder Capacity Normal Trabeculations Grade 0 Cellule Formation None Diverticulum Formation None Mucosal Erythema None Bladder Tumor None [id number] DISPOSABLE SCOPE URO-G FLEXIBLE SCOPE Procedure code (CPT) selection complete Office Meds lidocaine HCl 2 % mucosal jelly in applicator Performing Provider: David Ayon MD [place] [facility] [place] [place] Administered by: Tessy Hines RN on 03/16/25 10:30 Dose Route Admin Location Dispensed Lot Number Expiration Date NDC Powered Bridge Specialist 10 mL intra-urethral 10 mL nitrofurantoin monohydrate/macrocrystals 100 mg capsule Performing Provider: David Ayon MD [place] [facility] [place] [place] Administered by: Tessy Hines RN on 03/16/25 10:30 Dose Route Admin Location Dispensed Lot Number Expiration Date NDC Powered Bridge Specialist 100 mg PO 1 cap Assessment & Plan Assessment & Plan (1) Bladder cancer: Code(s): C67.9 - Malignant neoplasm of bladder, unspecified Category: Medical (2) Cystitis cystica: Code(s): N30.80 - Other cystitis without hematuria Category: Medical Plan Twelve month follow-up check cystoscopy Orders: Orders AMB Cystoscopy Today C67.9 - Malignant neoplasm of bladder, unspecified Patient Instructions: This note is constructed using voice recognition software. While every effort has been made to ensure accuracy admissions supervisor errors may have been included. Imaging studies, laboratory and physical exam results were discussed and reviewed in detail. No major barriers to patient understanding were identified. An opportunity to ask questions regarding the treatment plan was provided. All questions were answered. The patient expressed understanding and agreement with the above treatment plan. The patient is aware they should contact our office by phone for worsening of their current condition or the appearance of new urologic symptoms. Compliance is encouraged with any medications and followup testing that is ordered. It is a privilege to participate in the urologic care of your patient. If you have any questions or concerns regarding treatment for the above conditions, or other urologic issues, please do not hesitate to contact me. The office telephone contact is [phone]. Sincerely, Dr David Ayon MD, NADJA [facility] - Urology Compassionate Specialist Care for the Genitourinary System Coding Level of Care Code Est Pt Level 3 (05698) Complex EM visit Add On G2211 Diagnoses Bladder cancer C67.9 Cystitis cystica N30.80 CPT Codes Cystoscopy - CPT: 66821-[id number] ([id number])
== END 2025-03-16 11:11 | disposition home or self-care (01) ==
LOC: HO.HUSH 09:53
PROVIDERS: PCP Internal Medicine; Visit Provider Urology
DX: C67.9 Malignant neoplasm of bladder, unspecified (principal); N30.80 Other cystitis without hematuria; Z13.9 Encounter for screening, unspecified
CPT/HCPCS: 52000; 99213